=== PATIENT | female | born 1980 | race Two or more races ===

== ENCOUNTER 2022-05-27 00:09 | Emergency (ER) | payer SELFPAY ==
[~2022-05-27] VITALS: Ht 165.1 cm; Wt 95.4 kg
[2022-05-27] MEDS ORDERED: IOHEXOL 350 MG/ML 100ML IJ ONE (01:08)
[2022-05-27] MEDS ORDERED: ROCURONIUM 10MG/ML 10ML VIAL IV ONE ×6 (01:11→03:30)
[2022-05-27] MEDS ORDERED: MIDAZOLAM HCL 2MG/2ML 2ml VIAL (1mg/ml) ONE (01:11)
[2022-05-27] MEDS ORDERED: ETOMIDATE (2MG/ML) 20ML VIAL IV ONE ×2 (01:11→01:30)
[2022-05-27 01:15] LABS: Basophils # (auto) 0.1 10 ^3/uL (0-0.2); Eosinophils # (auto) 0.1 10 ^3/uL (0-0.8)
[2022-05-27] MEDS ORDERED: SODIUM CHLORIDE 0.9% 1,000 ML IV ONE (01:15)
[2022-05-27 01:19] LABS: Basophils % (auto) 0.9 % (0.0-2.0); Eosinophils % (auto) 1.2 % (0.0-7.0); Hematocrit 35.9 % (36.0-46.0); Hemoglobin 11.8 g/dL (12.2-16.2); Lymphocytes # (auto) 1.5 10 ^3/uL (0.4-5.4); Lymphocytes % (auto) 14.4 % (10.0-50.0); Mean Corpuscular Hemoglobin 25.3 pg (28.0-32.0); Mean Corpuscular Hgb Conc. 32.8 g/dL (32.0-36.0); Mean Corpuscular Volume 77.1 fL (80.0-100.0); Monocytes # (auto) 0.6 10 ^3/uL (0-1.3); Monocytes % (auto) 6.2 % (0.0-12.0); Neutrophils # (auto) 7.8 10 ^3/uL (1.6-8.6); Neutrophils % (auto) 77.3 % (37.0-80.0); Nucleated Red Blood Cells % 0.1 %; Red Blood Cells 4.66 10^6/uL (4.0-5.20); Red Cell Distribution Width 14.8 % (11.8-14.3); White Blood Cell 10.1 10^3/uL (4.4-10.8)
[2022-05-27] MEDS ORDERED: MIDAZOLAM HCL 5 MG/ML-1ML VIAL IV ONE (01:30)
[2022-05-27 01:31] LABS: Albumin 3.1 g/dL (3.4-5.0); Anion Gap 7 (5-15); Blood Alcohol < 3.0 mg/dL (0-5); Calcium 8.6 mg/dL (8.5-10.1); Carbon Dioxide 25 mmol/L (21-32); Chloride 99 mmol/L (98-107); Potassium 4.2 mmol/L (3.5-5.1); Sodium 131 mmol/L (136-145)
[2022-05-27] MEDS ORDERED: MIDAZOLAM DRIP 50 mg/50mL 50 ML IV ONE (01:33)
[2022-05-27 01:37] LABS: Alanine Aminotransferase 86 U/L (13-56); Alkaline Phosphatase 136 U/L (45-117); Aspartate Aminotransferase 96 U/L (15-37); BUN/Creatinine Ratio 20.8; Bilirubin, Total 0.3 mg/dL (0.2-1.0); Blood Urea Nitrogen 15 mg/dL (7-18); GFR African American 115 mL/min; GFR Non-African American 95 mL/min; Total Protein 6.4 g/dL (6.4-8.2)
[2022-05-27 01:43] LABS: Urine Bacteria NONE SEEN /hpf (None Seen); Urine Blood TRACE /uL (Negative); Urine Specific Gravity 1.048 (1.001-1.035); Urine WBC 1 /hpf (0 - 5)
[2022-05-27] MEDS: MIDAZOLAM DRIP 50 mg/50mL 50 ML IV SCH ×2 (01:45→03:08)
[2022-05-27] MEDS ORDERED: levETIRAcetam 500 MG/5ML INJ IV ONE (01:52)
[2022-05-27 01:53] LABS: Glucose 545 mg/dL (74-106)
[2022-05-27] MEDS ORDERED: PROPOFOL 100 ML IV ONE (02:02)
[2022-05-27] MEDS ORDERED: PROPOFOL 100 ML IV SCH (02:15)
[2022-05-27 03:29] VITALS: BP 120/68
== END 2022-05-27 03:51 | disposition short-term general hospital (02) ==
LOC: ER 00:09 → EDBD 00:09 → ER 03:51
DX: S06.300A Unspecified focal traumatic brain injury without loss of consciousness, initial encounter (principal); M25.532 Pain in left wrist; E11.9 Type 2 diabetes mellitus without complications; I10 Essential (primary) hypertension; V43.52XA Car driver injured in collision with other type car in traffic accident, initial encounter; Y93.89 Activity, other specified; Y92.488 Other paved roadways as the place of occurrence of the external cause; Y99.8 Other external cause status
CPT/HCPCS: 36415; 36600; 70450; 70486; 71045; 71260; 72125; 73110; 73700; 74177; 80053; 80320; 81001; 82805; 84484; 85025; 87070; 87205; 96365; 96375; 96376; 99285; J1953; J2250; J2704; J7060; Q9967; 94002

== ENCOUNTER 2023-05-03 18:58 | Inpatient (IN) | payer MEDICAID ==
[~2023-05-03] VITALS: Ht 162.6 cm; Wt 89.2 kg
[2023-05-03] MEDS: ONDANSETRON HCL 4 MG/2 ML VIAL IV ONE (19:45)
[2023-05-03] MEDS: DICYCLOMINE HCL (10MG/ML) 2 ML AMPULE IM ONE (20:10)
[2023-05-03] MEDS: ONDANSETRON ODT 4 MG TAB PO ONE (20:10)
[2023-05-03] MEDS: SODIUM CHLORIDE 0.9% 1,000 ML IV ONE (20:10)
[2023-05-03 20:30] VITALS: PULSE 100; RESP 12; O2SAT 94
[2023-05-03 20:32] LABS: Basophils # (auto) 0.1 10 ^3/uL (0-0.2); Eosinophils # (auto) 0.1 10 ^3/uL (0-0.8); Hemoglobin 10.7 g/dL (12.2-16.2); Monocytes # (auto) 0.9 10 ^3/uL (0-1.3); Neutrophils # (auto) 10.9 10 ^3/uL (1.6-8.6); White Blood Cell 13.1 10^3/uL (4.4-10.8)
[2023-05-03 20:35] LABS: Basophils % (auto) 0.5 % (0.0-2.0); Eosinophils % (auto) 0.8 % (0.0-7.0); Hematocrit 35.3 % (36.0-46.0); Lymphocytes # (auto) 1.2 10 ^3/uL (0.4-5.4); Lymphocytes % (auto) 8.9 % (10.0-50.0); Mean Corpuscular Hemoglobin 21.2 pg (28.0-32.0); Mean Corpuscular Hgb Conc. 30.3 g/dL (32.0-36.0); Mean Corpuscular Volume 69.8 fL (80.0-100.0); Monocytes % (auto) 6.7 % (0.0-12.0); Neutrophils % (auto) 83.1 % (37.0-80.0); Nucleated Red Blood Cells % 0.1 %; Red Blood Cells 5.05 10^6/uL (4.0-5.20); Red Cell Distribution Width 18.1 % (11.8-14.3)
[2023-05-03 20:48] LABS: Alanine Aminotransferase 14 U/L (7-40); Alkaline Phosphatase 157 U/L (46-116); Anion Gap 6 (5-15); Aspartate Aminotransferase 15 U/L (13-40); BUN/Creatinine Ratio 12.3 (10.0-20.0); Bilirubin, Direct < 0.1 mg/dL (<0.3); Blood Urea Nitrogen 8 mg/dL (9-23); Calcium 9.1 mg/dL (8.5-10.1); Carbon Dioxide 25 mmol/L (20-30); Chloride 104 mmol/L (98-107); Potassium 3.9 mmol/L (3.5-5.1); Sodium 135 mmol/L (136-145)
[2023-05-03 20:49] LABS: Bilirubin, Total 0.3 mg/dL (0.2-1.0); Total Protein 6.8 g/dL (5.7-8.2)
[2023-05-03 20:55] LABS: Glucose 458 mg/dL (74-106)
[2023-05-03 21:05] LABS: Lipase 40 U/L (12-53)
[2023-05-03 22:11] VITALS: PULSE 100; RESP 12; O2SAT 94
[2023-05-03] MEDS ORDERED: MORPHINE SULFATE INJ 2 MG/ml SYRG IV PRN (22:15)
[2023-05-03] MEDS ORDERED: PIPERACILLIN-TAZO 4.5GM 100 ML IV ONE (22:15)
[2023-05-03] MEDS ORDERED: ONDANSETRON HCL 4 MG/2 ML VIAL IV PRN (22:15)
[2023-05-03] MEDS ORDERED: SODIUM CHLORIDE 0.9% 1,000 ML IV SCH (22:15)
[2023-05-03] MEDS ORDERED: DEXTROSE (50%) 50ML SYRG IV PRN (22:15)
[2023-05-03 22:36] LABS: INR 0.96 (0.9-1.15); Partial Thromboplastin Time 28.2 SEC (24.5-34.5); Prothrombin Time 10.1 sec (9.3-11.8)
[2023-05-03 23:18] LABS: Urine Bacteria NONE SEEN /hpf (None Seen); Urine Blood 2+ /uL (Negative); Urine Clarity Clear (Clear); Urine Color Colorless (Yellow); Urine Protein, UAD Negative (Negative); Urine Specific Gravity 1.034 (1.001-1.035); Urine Urobilinogen Normal (Negative); Urine WBC 2 /hpf (0 - 5); Urine pH 5.5 (5.0-8.0)
[2023-05-04] MEDS ORDERED: ACCU-CHEK COMFORT CURVE STRIP VI SCH
[2023-05-04] MEDS ORDERED: InsuLIN REG 1unit/0.01ml Soln (100units/ml) SC SCH
[2023-05-04] MEDS ORDERED: PIPERACILLIN-TAZOB 3.375GM 100 ML IV SCH
[2023-05-04] MEDS: InsuLIN REG 1unit/0.01ml Soln (100units/ml) SC ONE (00:19)
[2023-05-04] MEDS: InsuLIN REG 1unit/0.01ml Soln (100units/ml) ONE (00:20)
[2023-05-04] MEDS ORDERED: DEXTROSE (50%) 50ML SYRG IV PRN (00:30)
[2023-05-04] MEDS: SODIUM CHLORIDE 0.9% 1,000 ML IV SCH (00:34)
[2023-05-04] MEDS: PIPERACILLIN-TAZOB 3.375GM 100 ML IV ONE (00:40)
[2023-05-04] MEDS: ONDANSETRON HCL 4 MG/2 ML VIAL IV PRN ×2 (01:46→22:23)
[2023-05-04] MEDS: MORPHINE SULFATE INJ 2 MG/ml SYRG IV PRN (01:46)
[2023-05-04] MEDS: ACCU-CHEK COMFORT CURVE STRIP VI SCH (05:38)
[2023-05-04] MEDS: InsuLIN REG 1unit/0.01ml Soln (100units/ml) SC SCH (05:38)
[2023-05-04] MEDS: PIPERACILLIN-TAZOB 3.375GM 100 ML IV SCH (05:41)
[2023-05-04 06:07] LABS: Eosinophils # (auto) 0 10 ^3/uL (0-0.8); Lymphocytes # (auto) 1.7 10 ^3/uL (0.4-5.4); Monocytes # (auto) 0.8 10 ^3/uL (0-1.3); Neutrophils # (auto) 8.2 10 ^3/uL (1.6-8.6); White Blood Cell 10.8 10^3/uL (4.4-10.8)
[2023-05-04 06:08] LABS: Alanine Aminotransferase 18 U/L (7-40); Alkaline Phosphatase 121 U/L (46-116); Anion Gap 6 (5-15); BUN/Creatinine Ratio 13.8 (10.0-20.0); Blood Urea Nitrogen 8 mg/dL (9-23); Calcium 8.3 mg/dL (8.5-10.1); Carbon Dioxide 25 mmol/L (20-30); Chloride 109 mmol/L (98-107); Glucose 334 mg/dL (74-106); Potassium 4.1 mmol/L (3.5-5.1); Sodium 140 mmol/L (136-145)
[2023-05-04 06:09] LABS: Albumin 3.4 g/dL (3.2-4.8); Aspartate Aminotransferase 14 U/L (13-40); Bilirubin, Total 0.4 mg/dL (0.2-1.0)
[2023-05-04 06:11] LABS: Basophils # (auto) 0.1 10 ^3/uL (0-0.2); Basophils % (auto) 0.6 % (0.0-2.0); Eosinophils % (auto) 0.3 % (0.0-7.0); Hemoglobin 9.4 g/dL (12.2-16.2); Lymphocytes % (auto) 15.9 % (10.0-50.0); Mean Corpuscular Hemoglobin 21.3 pg (28.0-32.0); Mean Corpuscular Hgb Conc. 30.4 g/dL (32.0-36.0); Monocytes % (auto) 7.5 % (0.0-12.0); Neutrophils % (auto) 75.7 % (37.0-80.0); Red Blood Cells 4.43 10^6/uL (4.0-5.20); Red Cell Distribution Width 17.9 % (11.8-14.3)
[2023-05-04 07:45] VITALS: PULSE 95; RESP 16; O2SAT 96
[2023-05-04] MEDS: metroNIDAZOLE 500MG/100ML 100 ML IV ONE (10:43)
[2023-05-04] MEDS: BUPIVACAINE 0.25% INJ 50ML VIAL ONE (10:56)
[2023-05-04] MEDS: LIDOCAINE W/ EPINEPHRINE 1% 20ML VIAL ONE (10:56)
[2023-05-04] MEDS: SUCCINYLCHOLINE CHLORIDE 20 MG/ML 10ML VIAL IV ONE (11:01)
[2023-05-04] MEDS ORDERED: ROCURONIUM 10MG/ML 10ML VIAL IV ONE (11:02)
[2023-05-04] MEDS ORDERED: PROPOFOL 10 MG/ML 20 ML IV ONE (11:02)
[2023-05-04] MEDS ORDERED: fentaNYL CITRATE 100 MCG/2 ML VL ONE (11:03)
[2023-05-04] MEDS ORDERED: ONDANSETRON HCL 4 MG/2 ML VIAL ONE (11:24)
[2023-05-04] MEDS ORDERED: DexAMETHasone SOD PHOS 10MG/1ML VIAL INJ ONE (11:24)
[2023-05-04] MEDS ORDERED: ePHEDrine SULFATE 50 MG/ML AMP ONE (11:25)
[2023-05-04] MEDS: ROPIVACAINE 0.5% (5MG/ML) 20ML AMPULE IJ ONE (11:43)
[2023-05-04] MEDS ORDERED: SUGAMMADEX 200mg/2ml Vial (100MG/ML) IV ONE (11:50)
[2023-05-04] MEDS ORDERED: MEPERIDINE HCL (50 MG/ML) 1 ML VIAL ONE (11:53)
[2023-05-04] MEDS ORDERED: MEPERIDINE HCL (25 MG/ML) 1ML VIAL IV PRN (12:30)
[2023-05-04] MEDS ORDERED: ONDANSETRON HCL 4 MG/2 ML VIAL IV PRN (12:30)
[2023-05-04] MEDS: InsuLIN REG 1unit/0.01ml Soln (100units/ml) IV ONE (12:36)
[2023-05-04] MEDS: HYDROmorphone HCL 2 MG/ML VL/or syr IV PRN (13:17)
[2023-05-04] MEDS: D5W/SOD CHL 0.45%/KCL 20MEQ 1,000 ML IV SCH (14:39)
[2023-05-04] MEDS: metroNIDAZOLE 500MG/100ML 100 ML IV SCH (14:45)
[2023-05-04 17:21] VITALS: BP 138/82; PULSE 112; RESP 18; TEMP 98.4; O2SAT 96
[2023-05-04] MEDS: SOD CHL 0.9%/ KCL 20MEQ 1,000 ML IV SCH (17:41)
[2023-05-04] MEDS: levoFLOXacin 500MG 100 ML IV SCH (19:54)
[2023-05-04 20:00] VITALS: O2SAT 98
[2023-05-04 22:00] VITALS: BP 143/91; PULSE 110; RESP 18; TEMP 98.8; O2SAT 95
[2023-05-05] VITALS (8 sets, daily range): BP systolic 140–163; BP diastolic 91–102; PULSE 96–110; RESP 15–19; TEMP 97.9–98.4; O2SAT 91–98
[2023-05-05 05:08] LABS: Basophils # (auto) 0 10 ^3/uL (0-0.2); Eosinophils # (auto) 0 10 ^3/uL (0-0.8); Hematocrit 32.9 % (36.0-46.0); Mean Corpuscular Volume 70.3 fL (80.0-100.0); Monocytes # (auto) 0.5 10 ^3/uL (0-1.3); Neutrophils # (auto) 9.3 10 ^3/uL (1.6-8.6)
[2023-05-05 05:11] LABS: Basophils % (auto) 0.2 % (0.0-2.0); Mean Corpuscular Hemoglobin 21.5 pg (28.0-32.0); Mean Corpuscular Hgb Conc. 30.6 g/dL (32.0-36.0); Neutrophils % (auto) 85.8 % (37.0-80.0); Red Blood Cells 4.67 10^6/uL (4.0-5.20); White Blood Cell 10.8 10^3/uL (4.4-10.8)
[2023-05-05 05:23] LABS: Alanine Aminotransferase 12 U/L (7-40); Albumin 3.7 g/dL (3.2-4.8); Alkaline Phosphatase 120 U/L (46-116); Anion Gap 11 (5-15); Aspartate Aminotransferase 8 U/L (13-40); BUN/Creatinine Ratio 12.5 (10.0-20.0); Bilirubin, Total 0.4 mg/dL (0.2-1.0); Blood Urea Nitrogen 8 mg/dL (9-23); Calcium 8.5 mg/dL (8.7-10.4); Carbon Dioxide 20 mmol/L (20-30); Chloride 105 mmol/L (98-107); Glucose 320 mg/dL (74-106); Potassium 4.1 mmol/L (3.5-5.1); Sodium 136 mmol/L (136-145); Total Protein 6.6 g/dL (5.7-8.2)
[2023-05-05 09:03] LABS: Hepatitis B Surface Antigen Negative (Negative)
[2023-05-05 09:24] LABS: Hepatitis C Antibody Negative (Negative)
[2023-05-05] MEDS: PANTOPRAZOLE 40 MG/10 ML VIAL INJ IV SCH (09:32)
[2023-05-05] MEDS ORDERED: ATOR40TA52 PO ×2 (11:38→13:03)
[2023-05-05] MEDS ORDERED: GABA-1308 PO ×2 (11:38→13:03)
[2023-05-05] MEDS ORDERED: CARV12.544 PO ×2 (11:38→13:03)
[2023-05-05] MEDS ORDERED: ROSU40TA81 PO (11:38)
[2023-05-05] MEDS ORDERED: LISI20TA56 PO ×2 (11:38→13:03)
[2023-05-05] MEDS ORDERED: METF-370 PO ×2 (11:38→13:03)
[2023-05-05] MEDS ORDERED: DEXTROSE (50%) 50ML SYRG IV PRN (11:45)
[2023-05-05] MEDS: InsuLIN REG 1unit/0.01ml Soln (100units/ml) SC SCH ×2 (12:56→21:25)
[2023-05-05] MEDS ORDERED: LEVO500T91 PO (13:03)
[2023-05-05] MEDS ORDERED: TRAM50TA2 PO (13:03)
[2023-05-05] MEDS ORDERED: METR-344 PO (13:03)
[2023-05-05] MEDS: LISINOPRIL 5 MG TAB PO ONE (14:35)
[2023-05-05] MEDS: ACCU-CHEK COMFORT CURVE STRIP VI SCH (16:37)
[2023-05-05] MEDS ORDERED: InsuLIN REG 1unit/0.01ml Soln (100units/ml) SC SCH (17:00)
[2023-05-05] MEDS: CARVEDILOL 3.125 MG TAB PO SCH (21:19)
[2023-05-06] VITALS (7 sets, daily range): BP systolic 105–167; BP diastolic 68–93; PULSE 93–105; RESP 16–20; TEMP 97.8–98.2; O2SAT 93–97
[2023-05-06 06:23] LABS: Basophils # (auto) 0.1 10 ^3/uL (0-0.2); Basophils % (auto) 0.8 % (0.0-2.0); Eosinophils # (auto) 0.1 10 ^3/uL (0-0.8); Eosinophils % (auto) 1.4 % (0.0-7.0); Hematocrit 32.8 % (36.0-46.0); Hemoglobin 9.8 g/dL (12.2-16.2); Lymphocytes # (auto) 2.6 10 ^3/uL (0.4-5.4); Mean Corpuscular Hemoglobin 21.1 pg (28.0-32.0); Mean Corpuscular Volume 70.6 fL (80.0-100.0); Monocytes # (auto) 0.7 10 ^3/uL (0-1.3); Monocytes % (auto) 8.2 % (0.0-12.0); Neutrophils % (auto) 58.6 % (37.0-80.0); Nucleated Red Blood Cells % 0.1 %; Red Blood Cells 4.65 10^6/uL (4.0-5.20); Red Cell Distribution Width 18.6 % (11.8-14.3); White Blood Cell 8.5 10^3/uL (4.4-10.8)
[2023-05-06 06:32] LABS: Chloride 103 mmol/L (98-107); Potassium 3.6 mmol/L (3.5-5.1); Sodium 134 mmol/L (136-145)
[2023-05-06 06:33] LABS: Anion Gap 7 (5-15); Carbon Dioxide 24 mmol/L (20-30)
[2023-05-06 06:34] LABS: Calcium 8.3 mg/dL (8.7-10.4)
[2023-05-06 06:38] LABS: Glucose 370 mg/dL (74-106)
[2023-05-06 06:52] LABS: BUN/Creatinine Ratio 21.6 (10.0-20.0); Blood Urea Nitrogen 16 mg/dL (9-23)
[2023-05-06] MEDS: LISINOPRIL 5 MG TAB PO SCH (09:18)
[2023-05-06] MEDS: INSULIN LANTUS (GLARGINE) 1 /0.01ml (100units/ml) SC ONE (15:36)
[2023-05-06] MEDS: DOCUSATE SOD 100 MG CAP PO ONE (21:24)
[2023-05-06] MEDS: INSULIN LANTUS (GLARGINE) 1 /0.01ml (100units/ml) SC SCH (21:28)
[2023-05-07 05:00] VITALS: BP 121/82; PULSE 90; RESP 18; TEMP 98; O2SAT 98
[2023-05-07] MEDS: ACETAMINOPHEN 325 MG TAB PO PRN (05:43)
[2023-05-07 08:00] VITALS: PULSE 100; RESP 19; O2SAT 96
[2023-05-07] MEDS: DOCUSATE SOD 100 MG CAP PO SCH (09:16)
[2023-05-07 10:01] VITALS: BP 140/91; PULSE 91; RESP 19; TEMP 98.4; O2SAT 96
[2023-05-07 12:52] VITALS: BP 143/89; PULSE 88; RESP 19; TEMP 98.1; O2SAT 95
[2023-05-07] MEDS ORDERED: METF-372 PO (14:13)
[2023-05-07] MEDS ORDERED: BLOO-54 XX (14:27)
[2023-05-07] MEDS ORDERED: LANC-347 XX (14:27)
[2023-05-07 14:32] VITALS: BP 140/91; PULSE 91; TEMP 36.7
[2023-05-07] MEDS: LACTULOSE 20Gm/30ML SOLN PO ONE (16:27)
== END 2023-05-07 17:10 | disposition home or self-care (01) | DRG 710 ==
LOC: ER 18:58 → EDBD 18:58 → ER 22:14 → OVERFLOW 22:14 → WEST WING 05-04 16:14
PROVIDERS: ADMIT Nurse Practitioner; ATTEND Internal Medicine
PROC: 0DTJ4ZZ Resection of Appendix, Percutaneous Endoscopic Approach (ICD-10-PCS; principal; 2023-05-04 11:05)
DX: A41.9 Sepsis, unspecified organism (principal); K35.80 Unspecified acute appendicitis; D25.9 Leiomyoma of uterus, unspecified; R91.1 Solitary pulmonary nodule; I10 Essential (primary) hypertension; N83.202 Unspecified ovarian cyst, left side; E78.00 Pure hypercholesterolemia, unspecified; E11.65 Type 2 diabetes mellitus with hyperglycemia; E66.9 Obesity, unspecified; N73.9 Female pelvic inflammatory disease, unspecified; N92.0 Excessive and frequent menstruation with regular cycle; Z68.34 Body mass index [BMI] 34.0-34.9, adult; Z79.84 Long term (current) use of oral hypoglycemic drugs
CPT/HCPCS: 36415; 74176; 76705; 76830; 76856; 80048; 80053; 81001; 82248; 82962; 83036; 83605; 83690; 84702; 85025; 85610; 85730; 86803; 86850; 86900; 86901; 87070; 87075; 87205; 87340; 93005; C9113; G0378; J0330; J1100; J1815; J1956; J2405; J2543; J2704; J3490; Q0162

== ENCOUNTER 2023-05-19 09:28 | Emergency (ER) | payer MEDICAID ==
[~2023-05-19] VITALS: Ht 167.6 cm; Wt 88.0 kg
[~2023-05-19 09:28] MED LIST: ATOR40TA52 PO; BLOO-54 XX; CARV12.544 PO; GABA-1308 PO; LANC-347 XX; LEVO500T91 PO; LISI20TA56 PO; METF-372 PO; METR-344 PO; TRAM50TA2 PO
[2023-05-19 10:13] VITALS: BP 144/81; PULSE 99; RESP 16; TEMP 97.3; O2SAT 96
== END 2023-05-19 10:30 | disposition home or self-care (01) ==
LOC: ER 09:28
DX: Z48.03 Encounter for change or removal of drains (principal); I10 Essential (primary) hypertension; E11.9 Type 2 diabetes mellitus without complications; Z90.49 Acquired absence of other specified parts of digestive tract; Z79.899 Other long term (current) drug therapy